=== PATIENT | male | born 1940 | race Caucasian/White ===

== ENCOUNTER → 2017-02-20 | Outpatient (CLI) | payer MEDICARE, OTHER | END | disposition home or self-care (01) | LOC: PUL 10:38 | PROVIDERS: ATTEND Internal Medicine Pulmonary Disease | DX: J84.10 Pulmonary fibrosis, unspecified (principal); R06.02 Shortness of breath | CPT/HCPCS: 94010; 94726; 94729 ==

== ENCOUNTER → 2017-08-13 | Outpatient (CLI) | END | disposition home or self-care (01) ==

== ENCOUNTER → 2018-03-12 | Outpatient (CLI) | END | disposition home or self-care (01) ==

== ENCOUNTER → 2018-09-10 | Outpatient (CLI) | payer MEDICARE, OTHER | END | disposition home or self-care (01) | LOC: PUL 09:26 | PROVIDERS: ATTEND Internal Medicine Pulmonary Disease | DX: J84.10 Pulmonary fibrosis, unspecified (principal) | CPT/HCPCS: 94010; 94726; 94729 ==